=== PATIENT | female | born 1985 | race Caucasian/White ===

== ENCOUNTER 2020-03-10 12:02 | Emergency (ER) | payer OTHER ==
[~2020-03-10] VITALS: Ht 165.1 cm; Wt 102.1 kg
[2020-03-10] MEDS ORDERED: AVAPRO300 MG PO (12:08)
[2020-03-10] MEDS ORDERED: SYNTHROID200 MCG PO (12:08)
[2020-03-10] MEDS ORDERED: VYVANSE60 M1 PO (12:09)
[2020-03-10] MEDS ORDERED: WELLBUTRIN XL300 MG PO (12:09)
[2020-03-10] MEDS ORDERED: DULERA 100 MCG/13 GM IH (12:09)
[2020-03-10] MEDS ORDERED: SPIRIVA RESPIMAT4 G1 IH (12:10)
[2020-03-10] MEDS ORDERED: ZYRTEC10 MG PO (12:10)
[2020-03-10] MEDS ORDERED: SINGULAIR10 MG PO (12:10)
== END 2020-03-10 18:35 | disposition home or self-care (01) ==
LOC: ER 12:02
DX: A60.04 Herpesviral vulvovaginitis (principal); N39.0 Urinary tract infection, site not specified; Z03.818 Encounter for observation for suspected exposure to other biological agents ruled out; R53.81 Other malaise